=== PATIENT | female | born 1935 | race Caucasian/White ===

== ENCOUNTER 2017-08-13 12:59 | Outpatient (CLI) | payer OTHER | END 2017-08-13 20:10 | disposition home or self-care (01) | LOC: SMA 12:59 | PROVIDERS: ATTEND Family Medicine | DX: R92.8 Other abnormal and inconclusive findings on diagnostic imaging of breast (principal) | CPT/HCPCS: G0204 ==

== ENCOUNTER 2017-12-27 14:47 | Outpatient (CLI) | payer OTHER | END 2017-12-27 19:57 | disposition home or self-care (01) | LOC: SMA 14:47 | PROVIDERS: ATTEND Family Medicine | DX: R92.8 Other abnormal and inconclusive findings on diagnostic imaging of breast (principal) | CPT/HCPCS: 77065 ==